=== PATIENT | female | born 1930 | race Caucasian/White ===

== ENCOUNTER 2016-11-04 11:54 | Inpatient (IN) | payer MEDICARE ==
[~2016-11-04] VITALS: Ht 152.4 cm; Wt 53.7 kg
[~2016-11-04 11:54] MED LIST: AMLO5TAB2 PO; ASPI-621 PO; HYDR-3341 PO; LABE100T3 PO; LEVO100T5 PO; LOSA100T6 PO; PANT40TA5 PO; POTA10TA90 PO; POTA20TA14 PO; SPIR25TA PO
[2016-11-04] MEDS ORDERED: SODIUM CHLORIDE FLUSH 10ML SYR IVF ONE ×2 (12:30→16:30)
[2016-11-04] MEDS ORDERED: SODIUM CHLORIDE 0.9% 1,000ML IVBOLUS ONE (12:30)
[2016-11-04] MEDS ORDERED: ONDANSETRON 2MG/ML, 2ML IVPush ONE (13:30)
[2016-11-04] MEDS ORDERED: HYDROcodone/APAP 5/325 TABLET PO ONE (13:30)
[2016-11-04 13:33] LABS: BLOOD UREA NITROGEN 23 mg/dL (7-18)
[2016-11-04] MEDS ORDERED: HYDROcodone/APAP 5/325 TABLET ONE (13:52)
[2016-11-04] MEDS ORDERED: ONDANSETRON 2MG/ML, 2ML ONE ×2 (13:53→17:44)
[2016-11-04] MEDS ORDERED: hydrALAzine 20 MG/ML, 1ML IV ONE (17:00)
[2016-11-04] MEDS ORDERED: SODIUM CHLORIDE 0.9% 1,000 ML IV SCH (17:02)
[2016-11-04] MEDS ORDERED: DOCUSATE 100 MG CAPSULE PO PRN (17:30)
[2016-11-04] MEDS ORDERED: ACETAMINOPHEN 325 MG TABLET PO PRN (17:30)
[2016-11-04] MEDS ORDERED: PHARMACY MAY ADJ FOR RENAL FX MC PRN (17:30)
[2016-11-04] MEDS ORDERED: ONDANSETRON 2MG/ML, 2ML IVP PRN (17:30)
[2016-11-04] MEDS ORDERED: POLYETHYLENE GLYCOL 17 GM PACKET PO PRN (17:30)
[2016-11-04] MEDS ORDERED: BISACODYL 10 MG SUPP PR PRN (17:30)
[2016-11-04] MEDS ORDERED: ONDANSETRON ODT 4 MG PO PRN (17:30)
[2016-11-04] MEDS ORDERED: MAGNESIUM SULFATE PMX 2GM/50ML 50 ML IV ONE (17:30)
[2016-11-04] MEDS ORDERED: HYDROmorphone 1 MG/ML, 1ML ONE ×2 (17:44→18:03)
[2016-11-04] MEDS: HYDROmorphone 2 MG/ML, 1ML IV PRN ×3 (17:49→23:09)
[2016-11-04 18:02] LABS: IS PT STATUS REG ER OR PRE ER? YES
[2016-11-04 20:00] VITALS: BP 159/63
[2016-11-04 20:10] VITALS: BP 156/69
[2016-11-04] MEDS: AMLODIPINE 5 MG TABLET PO SCH ×2 (21:00→22:57)
[2016-11-04] MEDS: POTASSIUM CHLORIDE 20 MEQ TAB.ER.PRT PO SCH (22:56)
[2016-11-04] MEDS: HEPARIN 5,000 UNITS/ML, 1ML SQ SCH (22:57)
[2016-11-04] MEDS: SPIRONOLACTONE 25 MG TABLET PO SCH (22:57)
[2016-11-05] MEDS: HYDROmorphone 2 MG/ML, 1ML IV PRN (04:00)
[2016-11-05 04:20] VITALS: BP 178/74
[2016-11-05] MEDS: HEPARIN 5,000 UNITS/ML, 1ML SQ SCH ×2 (05:31→13:30)
[2016-11-05] MEDS ORDERED: ASPIRIN 81 MG TABLET EC PO SCH (06:00)
[2016-11-05 06:21] LABS: ASPARTATE AMINO TRANSFERASE 17 U/L (15-37); BLOOD UREA NITROGEN 22 mg/dL (7-18)
[2016-11-05 08:00] VITALS: BP 139/69
[2016-11-05] MEDS: PANTOPROZOLE 40MG TABLET PO SCH (08:32)
[2016-11-05] MEDS: SPIRONOLACTONE 25 MG TABLET PO SCH ×2 (08:32→20:59)
[2016-11-05] MEDS: LABETALOL 100 MG TABLET PO SCH (08:33)
[2016-11-05] MEDS: POTASSIUM CHLORIDE 20 MEQ TAB.ER.PRT PO SCH (08:33)
[2016-11-05] MEDS: AMLODIPINE 5 MG TABLET PO SCH ×2 (08:33→20:59)
[2016-11-05] MEDS: LEVOTHYROXINE 100 MCG TABLET PO SCH (09:00)
[2016-11-05] MEDS ORDERED: TEMPLATE NON-FORMULARY MED. (Losartan Potassium** 100 MG) PO SCH (09:00)
[2016-11-05] MEDS: LOSARTAN 50MG TABLET PO SCH (10:31)
[2016-11-05 13:15] VITALS: BP 102/57
[2016-11-05] MEDS ORDERED: LEVETIRACETAM 250 MG in SODIUM CHLORIDE 0.9% 100 ML IV SCH (19:30)
[2016-11-05] MEDS: LEVETIRACETAM 250 MG in SODIUM CHLORIDE 0.9% 100 ML IV SCH (20:14)
[2016-11-06 04:30] VITALS: BP 138/59
[2016-11-06 04:33] LABS: BLOOD UREA NITROGEN 17 mg/dL (7-18)
[2016-11-06] MEDS: LEVOTHYROXINE 100 MCG TABLET PO SCH (06:06)
[2016-11-06] MEDS ORDERED: POTASSIUM CHLORIDE 20 MEQ PACKET PO ONE (08:00)
[2016-11-06] MEDS: PANTOPROZOLE 40MG TABLET PO SCH (09:29)
[2016-11-06] MEDS: LEVETIRACETAM 250 MG in SODIUM CHLORIDE 0.9% 100 ML IV SCH ×2 (09:29→19:42)
[2016-11-06] MEDS: SPIRONOLACTONE 25 MG TABLET PO SCH ×2 (09:30→21:34)
[2016-11-06] MEDS: LOSARTAN 50MG TABLET PO SCH (09:31)
[2016-11-06] MEDS: LABETALOL 100 MG TABLET PO SCH (09:31)
[2016-11-06] MEDS: AMLODIPINE 5 MG TABLET PO SCH ×2 (09:31→21:33)
[2016-11-06] MEDS: HYDROmorphone 2 MG/ML, 1ML IV PRN (14:48)
[2016-11-06] MEDS: ATORVASTATIN 20 MG TABLET PO SCH (21:34)
[2016-11-07 04:34] LABS: BLOOD UREA NITROGEN 13 mg/dL (7-18)
[2016-11-07 05:00] VITALS: BP 148/51
[2016-11-07] MEDS: LEVOTHYROXINE 100 MCG TABLET PO SCH (05:33)
[2016-11-07] MEDS: LEVETIRACETAM 250 MG in SODIUM CHLORIDE 0.9% 100 ML IV SCH ×2 (08:20→20:15)
[2016-11-07] MEDS: SPIRONOLACTONE 25 MG TABLET PO SCH ×2 (08:28→21:07)
[2016-11-07] MEDS: PANTOPROZOLE 40MG TABLET PO SCH (08:28)
[2016-11-07] MEDS: LOSARTAN 50MG TABLET PO SCH (10:36)
[2016-11-07] MEDS: AMLODIPINE 5 MG TABLET PO SCH ×2 (10:37→21:07)
[2016-11-07] MEDS: LABETALOL 100 MG TABLET PO SCH (10:37)
[2016-11-07] MEDS: HEPARIN 5,000 UNITS/ML, 1ML SQ SCH ×2 (11:36→17:11)
[2016-11-07] MEDS: HYDROcodone/APAP 5/325 TABLET PO PRN ×2 (17:30→18:32)
[2016-11-07] MEDS: ATORVASTATIN 20 MG TABLET PO SCH (21:06)
[2016-11-08] MEDS: HEPARIN 5,000 UNITS/ML, 1ML SQ SCH ×3 (02:30→20:00)
[2016-11-08 04:00] VITALS: BP 118/54
[2016-11-08] MEDS: HYDROcodone/APAP 5/325 TABLET PO PRN ×4 (04:26→22:32)
[2016-11-08 04:44] LABS: BLOOD UREA NITROGEN 20 mg/dL (7-18)
[2016-11-08] MEDS: LEVOTHYROXINE 100 MCG TABLET PO SCH (05:35)
[2016-11-08] MEDS ORDERED: POTASSIUM CHLORIDE 20 MEQ TAB.ER.PRT PO ONE (07:30)
[2016-11-08 09:00] VITALS: BP 126/70
[2016-11-08] MEDS: PANTOPROZOLE 40MG TABLET PO SCH (09:10)
[2016-11-08] MEDS: SPIRONOLACTONE 25 MG TABLET PO SCH ×2 (09:10→22:31)
[2016-11-08] MEDS: LEVETIRACETAM 250 MG in SODIUM CHLORIDE 0.9% 100 ML IV SCH ×2 (09:10→22:31)
[2016-11-08] MEDS: LOSARTAN 50MG TABLET PO SCH (09:11)
[2016-11-08] MEDS: LABETALOL 100 MG TABLET PO SCH (09:11)
[2016-11-08] MEDS: AMLODIPINE 5 MG TABLET PO SCH ×2 (09:11→22:32)
[2016-11-08 16:22] VITALS: BP 128/72
[2016-11-08 20:38] VITALS: BP 131/66
[2016-11-08] MEDS: ATORVASTATIN 20 MG TABLET PO SCH (22:32)
[2016-11-08 22:43] VITALS: BP 145/69
[2016-11-09 02:45] VITALS: BP 146/76
[2016-11-09] MEDS: HEPARIN 5,000 UNITS/ML, 1ML SQ SCH ×3 (03:36→21:11)
[2016-11-09 04:04] VITALS: BP 145/73
[2016-11-09] MEDS: LEVOTHYROXINE 100 MCG TABLET PO SCH (05:58)
[2016-11-09 06:49] VITALS: BP 143/74
[2016-11-09] MEDS: LABETALOL 100 MG TABLET PO SCH (09:11)
[2016-11-09] MEDS: AMLODIPINE 5 MG TABLET PO SCH ×2 (09:11→21:11)
[2016-11-09] MEDS: PANTOPROZOLE 40MG TABLET PO SCH (09:12)
[2016-11-09] MEDS: LEVETIRACETAM 250 MG in SODIUM CHLORIDE 0.9% 100 ML IV SCH ×2 (09:12→21:10)
[2016-11-09] MEDS: LOSARTAN 50MG TABLET PO SCH (09:12)
[2016-11-09] MEDS: SPIRONOLACTONE 25 MG TABLET PO SCH ×2 (09:12→21:10)
[2016-11-09] MEDS: HYDROcodone/APAP 5/325 TABLET PO PRN ×3 (12:41→22:52)
[2016-11-09 13:49] VITALS: BP 140/72
[2016-11-09 20:30] VITALS: BP 134/66
[2016-11-09] MEDS: ATORVASTATIN 20 MG TABLET PO SCH (21:11)
[2016-11-10 02:34] VITALS: BP 137/71
[2016-11-10 05:16] VITALS: BP 124/68
[2016-11-10] MEDS: HEPARIN 5,000 UNITS/ML, 1ML SQ SCH ×3 (05:27→20:00)
[2016-11-10] MEDS: LEVOTHYROXINE 100 MCG TABLET PO SCH (05:27)
[2016-11-10 08:55] VITALS: BP 138/74
[2016-11-10] MEDS: LEVETIRACETAM 250 MG in SODIUM CHLORIDE 0.9% 100 ML IV SCH ×2 (09:17→21:14)
[2016-11-10] MEDS: SPIRONOLACTONE 25 MG TABLET PO SCH ×2 (09:18→21:15)
[2016-11-10] MEDS: PANTOPROZOLE 40MG TABLET PO SCH (09:18)
[2016-11-10] MEDS: AMLODIPINE 5 MG TABLET PO SCH ×2 (09:18→21:15)
[2016-11-10] MEDS: LABETALOL 100 MG TABLET PO SCH (09:18)
[2016-11-10] MEDS: LOSARTAN 50MG TABLET PO SCH (09:19)
[2016-11-10] MEDS: HYDROcodone/APAP 5/325 TABLET PO PRN ×3 (10:20→21:31)
[2016-11-10] MEDS ORDERED: POTASSIUM CHLORIDE 20 MEQ TAB.ER.PRT PO ONE (12:30)
[2016-11-10 13:35] VITALS: BP 128/64
[2016-11-10 17:30] VITALS: BP 135/68
[2016-11-10 20:00] VITALS: BP 146/64
[2016-11-10] MEDS: ATORVASTATIN 20 MG TABLET PO SCH (21:14)
[2016-11-11 01:52] VITALS: BP 131/70
[2016-11-11 05:37] LABS: BLOOD UREA NITROGEN 19 mg/dL (7-18)
[2016-11-11] MEDS: LEVOTHYROXINE 100 MCG TABLET PO SCH (06:18)
[2016-11-11] MEDS: HEPARIN 5,000 UNITS/ML, 1ML SQ SCH ×3 (06:19→21:21)
[2016-11-11 07:32] VITALS: BP 128/65
[2016-11-11] MEDS: LEVETIRACETAM 250 MG in SODIUM CHLORIDE 0.9% 100 ML IV SCH ×2 (09:38→21:20)
[2016-11-11] MEDS: LOSARTAN 50MG TABLET PO SCH (09:39)
[2016-11-11] MEDS: PANTOPROZOLE 40MG TABLET PO SCH (09:39)
[2016-11-11] MEDS: SPIRONOLACTONE 25 MG TABLET PO SCH ×2 (09:39→21:21)
[2016-11-11] MEDS: AMLODIPINE 5 MG TABLET PO SCH ×2 (09:39→21:21)
[2016-11-11] MEDS: LABETALOL 100 MG TABLET PO SCH (09:40)
[2016-11-11] MEDS: HYDROcodone/APAP 5/325 TABLET PO PRN (14:16)
[2016-11-11 14:18] VITALS: BP 107/64
[2016-11-11 20:01] VITALS: BP 128/73
[2016-11-11] MEDS: ATORVASTATIN 20 MG TABLET PO SCH (21:21)
[2016-11-12 01:22] VITALS: BP 113/63
[2016-11-12] MEDS: HEPARIN 5,000 UNITS/ML, 1ML SQ SCH ×2 (05:08→16:00)
[2016-11-12] MEDS: LEVOTHYROXINE 100 MCG TABLET PO SCH (05:09)
[2016-11-12 07:18] VITALS: BP 127/69
[2016-11-12] MEDS: PANTOPROZOLE 40MG TABLET PO SCH (07:30)
[2016-11-12] MEDS: AMLODIPINE 5 MG TABLET PO SCH ×2 (09:00→21:02)
[2016-11-12] MEDS: SPIRONOLACTONE 25 MG TABLET PO SCH ×2 (09:00→21:03)
[2016-11-12] MEDS: LOSARTAN 50MG TABLET PO SCH (09:00)
[2016-11-12] MEDS: LEVETIRACETAM 250 MG in SODIUM CHLORIDE 0.9% 100 ML IV SCH ×2 (09:00→21:02)
[2016-11-12] MEDS: LABETALOL 100 MG TABLET PO SCH (09:00)
[2016-11-12 13:06] VITALS: BP 105/63
[2016-11-12] MEDS: HYDROcodone/APAP 5/325 TABLET PO PRN (17:36)
[2016-11-12] MEDS: ATORVASTATIN 20 MG TABLET PO SCH (21:03)
[2016-11-12 21:13] VITALS: BP 108/57
[2016-11-13 01:25] VITALS: BP 117/65
[2016-11-13] MEDS: LEVOTHYROXINE 100 MCG TABLET PO SCH (05:59)
[2016-11-13] MEDS: HEPARIN 5,000 UNITS/ML, 1ML SQ SCH ×4 (08:00→23:18)
[2016-11-13 08:54] VITALS: BP 122/74
[2016-11-13] MEDS: AMLODIPINE 5 MG TABLET PO SCH ×2 (09:06→21:21)
[2016-11-13] MEDS: LABETALOL 100 MG TABLET PO SCH (09:06)
[2016-11-13] MEDS: SPIRONOLACTONE 25 MG TABLET PO SCH ×2 (09:07→21:21)
[2016-11-13] MEDS: LOSARTAN 50MG TABLET PO SCH (09:07)
[2016-11-13] MEDS: PANTOPROZOLE 40MG TABLET PO SCH (09:07)
[2016-11-13] MEDS: LEVETIRACETAM 250 MG in SODIUM CHLORIDE 0.9% 100 ML IV SCH ×2 (09:26→21:21)
[2016-11-13 13:00] VITALS: BP 104/56
[2016-11-13] MEDS ORDERED: LEVE250T28 PO (14:54)
[2016-11-13 20:05] VITALS: BP 122/68
[2016-11-13 21:17] VITALS: BP 128/64
[2016-11-13] MEDS: ATORVASTATIN 20 MG TABLET PO SCH (21:21)
[2016-11-14 02:13] VITALS: BP 124/65
[2016-11-14 03:10] VITALS: BP 136/69
[2016-11-14] MEDS: LEVOTHYROXINE 100 MCG TABLET PO SCH (05:52)
[2016-11-14] MEDS: HEPARIN 5,000 UNITS/ML, 1ML SQ SCH (08:00)
[2016-11-14 08:24] VITALS: BP 103/48
[2016-11-14 08:35] VITALS: BP 103/48
[2016-11-14] MEDS: LEVETIRACETAM 250 MG in SODIUM CHLORIDE 0.9% 100 ML IV SCH (10:20)
[2016-11-14] MEDS: PANTOPROZOLE 40MG TABLET PO SCH (10:20)
== END 2016-11-14 12:47 | DRG 559 ==
LOC: ED 12:54 → EDIP 16:22 → 4EST 18:53 → CCU 11-05 16:21 → 4EST 11-08 16:10
PROVIDERS: ADMIT Hospitalist; ATTEND Hospitalist
DX: M97.02XA Periprosthetic fracture around internal prosthetic left hip joint, initial encounter (principal); I62.01 Nontraumatic acute subdural hemorrhage; I63.9 Cerebral infarction, unspecified; I60.9 Nontraumatic subarachnoid hemorrhage, unspecified; E44.1 Mild protein-calorie malnutrition; N17.9 Acute kidney failure, unspecified; E87.2 Acidosis; R47.01 Aphasia; I11.9 Hypertensive heart disease without heart failure; D72.829 Elevated white blood cell count, unspecified; E87.6 Hypokalemia; E83.39 Other disorders of phosphorus metabolism; E83.42 Hypomagnesemia; E03.9 Hypothyroidism, unspecified; E78.5 Hyperlipidemia, unspecified; E86.0 Dehydration; I25.10 Atherosclerotic heart disease of native coronary artery without angina pectoris; I34.0 Nonrheumatic mitral (valve) insufficiency; I65.22 Occlusion and stenosis of left carotid artery; I77.1 Stricture of artery; K21.9 Gastro-esophageal reflux disease without esophagitis; K80.20 Calculus of gallbladder without cholecystitis without obstruction; M85.80 Other specified disorders of bone density and structure, unspecified site; R13.10 Dysphagia, unspecified; Z66 Do not resuscitate; Z96.643 Presence of artificial hip joint, bilateral; Z68.23 Body mass index [BMI] 23.0-23.9, adult; Z88.5 Allergy status to narcotic agent; Z90.710 Acquired absence of both cervix and uterus; Z60.2 Problems related to living alone
CPT/HCPCS: 36415; 70450; 70551; 71010; 80048; 80053; 80061; 81003; 82040; 82306; 82550; 83036; 83721; 83735; 84100; 84443; 84484; 85025; 85610; 85730; 87081; 93005; 93306; 93880; 96361; 96374; 96375; 96376; J1170; J1644; J1953; J2405; 92523-GN; J3475; J7030